=== PATIENT | female | born 1990 | race Caucasian/White ===

== ENCOUNTER 2016-08-10 11:41 | Day surgery (SDC) | payer BC ==
[~2016-08-10 11:41] MED LIST: ATARAX25 MG PO; CARAFATE1 G PO; CLEOCIN HCL300 M1 PO; COGENTIN1 MG/TA1 PO; DEPAKOTE ER250 MG PO; GLUCOPHAGE500 MG PO; HYDROCHLOROTH12.5 MG PO; LEVOXYL50 MC1 PO; LISINOPRIL10 MG PO; MEDROXYPROG150 MG/ML IM; MINIPRESS1 M1 PO; MOTRIN400 MG PO; PROTONIX40 MG PO; RISPERDAL3 MG PO; RISPERDAL37.5 MG/2 IM; VITAMIN D1000 UNIT PO
[2016-08-10] MEDS ORDERED: MINIPRESS1 M1 PO (11:51)
[2016-08-10] MEDS ORDERED: SEROQUEL200 M2 PO (11:51)
[2016-08-10] MEDS ORDERED: SYNTHROID50 MC1 PO (11:52)
[2016-08-10] MEDS ORDERED: VITAMIN D31000 UNI3 PO (11:52)
[2016-08-10] MEDS ORDERED: XYLIMELTS MM (11:53)
[2016-08-10] MEDS ORDERED: SONATA10 M2 PO (11:53)
[2016-08-10] MEDS ORDERED: LORAZEPAM2 MG/1 M2 IM (11:54)
[2016-08-10] MEDS ORDERED: XANAX1 M1 PO (11:54)
[2016-08-10] MEDS ORDERED: HYDROXYZINE HCL50 M1 PO (11:55)
[2016-08-10] MEDS ORDERED: ZYPREXA10 M2 IM (11:56)
[2016-08-10] MEDS ORDERED: OLANZAPINE SL (11:57)
[2016-08-10] MEDS ORDERED: ZOFRAN ODT4 MG SL (11:58)
[2016-08-10] MEDS ORDERED: ACETAMINOPHEN325 M2 PO (11:59)
[2016-08-10] MEDS ORDERED: BISACODYL5 M1 PO (12:00)
[2016-08-10] MEDS ORDERED: [UNRECOGNIZED DRUG - OTHER] PO (12:00)
[2016-08-10] MEDS ORDERED: EXCEDRIN MIGRA1 EAC3 PO (12:01)
[2016-08-10] MEDS ORDERED: CALCIUM500 M4 CH (12:01)
[2016-08-10] MEDS ORDERED: CEPACOL SORE T1 EAC2 MM (12:01)
[2016-08-10] MEDS ORDERED: LOPERAMIDE2 M2 PO (12:02)
[2016-08-10] MEDS ORDERED: MILK OF MAGNESIA PO (12:03)
[2016-08-10] MEDS ORDERED: NYSTOP60 GM EXT (12:04)
[2016-08-10] MEDS ORDERED: PROAIR HFA8.5 GM INH (12:05)
[2016-08-10] MEDS ORDERED: HALOPERIDOL5 MG/1 M1 IM (12:06)
[2016-08-10 12:50] LABS: BASO % 0.3 % (0-2); EOS % 0.3 % (0-7); EOSINOPHIL ABSOLUTE COUNT 0.1 tho/cmm (0.0-0.7); HCT-HEMATOCRIT 40.7 % (34.0-49.0); HGB-HEMOGLOBIN 14.4 gm/dl (12.0-15.5); IMMATURE GRANULOCYTES ABSOLUTE 0.04 tho/cmm (0-0.03); IMMATURE GRANULOCYTES PERCENT 0.3 % (0-0.3); LYMPH % 13.8 % (20-45); LYMPH ABSOLUTE COUNT 2.1 tho/cmm (0.8-4.5); MCH (MEAN CORPUSCULAR HGB) 30.1 pg (28.0-32.0); MCHC MEAN CORPUSCULAR HGB CONC 35.4 % (32.0-36.0); MEAN PLATELET VOLUME 8.6 cmc (9.4-12.4); MONO % 9.8 % (0-12); MONOCYTE ABSOLUTE COUNT 1.5 tho/cmm (0.0-1.2); NEUTROPHIL ABSOLUTE COUNT 11.6 tho/cmm (1.6-8.0); NEUTROPHIL-AUTOMATED 11.6 tho/cmm (1.6-8.0); NEUTROPHILS % 75.5 % (40-80); PLATELET COUNT 222 tho/cmm (150-450); RED BLOOD COUNT 4.79 mil/cmm (4.00-5.20); RED CELL DISTRIBUTION WIDTH 13.4 % (12.4-16.4); WHITE BLOOD COUNT 15.4 tho/cmm (4.0-10.0)
[2016-08-10 12:57] LABS: URINE APPEARANCE CLEAR; URINE BILIRUBIN NEGATIVE (NEG); URINE BLOOD NEGATIVE (NEG); URINE COLOR PALE YELLOW; URINE GLUCOSE (UA) NEGATIVE (NEG); URINE KETONE NEGATIVE (NEG); URINE LEUKOCYTE ESTERASE NEGATIVE (NEG); URINE NITRITE NEGATIVE (NEG); URINE PH 6.5 (5.0-8.0); URINE PROTEIN NEGATIVE (NEG)
[2016-08-10 13:04] LABS: ANION GAP 12 mmol/L (0-20); BLOOD UREA NITROGEN 8 mg/dl (6-24); CALCIUM 9.3 mg/dl (8.5-10.5); CARBON DIOXIDE-VENOUS 27 mmol/L (22-32); CHLORIDE 107 mmol/l (96-110); CREATININE 0.76 mg/dl (0.50-1.10); GLUCOSE 97 mg/dL (70-110); POTASSIUM 3.9 mmol/L (3.7-5.1); SODIUM 142 mmol/L (135-145); eGFR VALUE FOR BLACK >90 mL/Min
[2016-08-28] MEDS ORDERED: DOK250 M1 PO (16:27)
[2016-08-28] MEDS ORDERED: MILK OF MAGNESIA PO (16:43)
[2016-08-28] MEDS ORDERED: LORAZEPAM IM (16:46)
[2016-10-23] MEDS ORDERED: PROZAC20 M3 PO (21:52)
[2016-10-23] MEDS ORDERED: DEPO-PROVE150 MG/1 M IM (21:53)
[2016-10-23] MEDS ORDERED: MACROBID 100 M100 M1 PO (22:18)
== END 2016-08-10 18:35 ==
LOC: EDMED 11:41 → SRG 13:41 → SHSC 14:00
PROVIDERS: Emergency Medicine
PROC: 0JC80ZZ Extirpation of Matter from Abdomen Subcutaneous Tissue and Fascia, Open Approach (ICD-10-PCS; principal; 2016-08-10)
DX: L03.311 Cellulitis of abdominal wall (principal); S30.851A Superficial foreign body of abdominal wall, initial encounter; I10 Essential (primary) hypertension; E66.01 Morbid (severe) obesity due to excess calories; E11.9 Type 2 diabetes mellitus without complications; E03.9 Hypothyroidism, unspecified; F41.9 Anxiety disorder, unspecified; F32.9 Major depressive disorder, single episode, unspecified; F20.9 Schizophrenia, unspecified; K21.9 Gastro-esophageal reflux disease without esophagitis; F17.210 Nicotine dependence, cigarettes, uncomplicated; Z79.899 Other long term (current) drug therapy; Z88.1 Allergy status to other antibiotic agents; Z88.8 Allergy status to other drugs, medicaments and biological substances; Z91.040 Latex allergy status; Z91.048 Other nonmedicinal substance allergy status; Z90.49 Acquired absence of other specified parts of digestive tract; Z90.89 Acquired absence of other organs; Z98.890 Other specified postprocedural states
CPT/HCPCS: J2185; J3370; J7030

== ENCOUNTER 2016-08-13 21:49 | Inpatient (IN) | payer BC ==
[~2016-08-13 21:49] MED LIST changes: +ACETAMINOPHEN325 M2 PO; +BISACODYL5 M1 PO; +CALCIUM500 M4 CH; +CEPACOL SORE T1 EAC2 MM; +EXCEDRIN MIGRA1 EAC3 PO; +HALOPERIDOL5 MG/1 M1 IM; +HYDROXYZINE HCL50 M1 PO; +LOPERAMIDE2 M2 PO; +LORAZEPAM2 MG/1 M2 IM; +MILK OF MAGNESIA PO; +NYSTOP60 GM EXT; +OLANZAPINE SL; +PROAIR HFA8.5 GM INH; +SEROQUEL200 M2 PO; +SONATA10 M2 PO; +SYNTHROID50 MC1 PO; +VITAMIN D31000 UNI3 PO; +XANAX1 M1 PO; +XYLIMELTS MM; +ZOFRAN ODT4 MG SL; +ZYPREXA10 M2 IM; +[UNRECOGNIZED DRUG - OTHER] PO
[2016-08-13 22:34] LABS: BASO % 0.5 % (0-2); BASO ABSOLUTE COUNT 0.1 tho/cmm (0.0-0.2); EOS % 1.6 % (0-7); EOSINOPHIL ABSOLUTE COUNT 0.2 tho/cmm (0.0-0.7); HGB-HEMOGLOBIN 12.7 gm/dl (12.0-15.5); IMMATURE GRANULOCYTES ABSOLUTE 0.03 tho/cmm (0-0.03); IMMATURE GRANULOCYTES PERCENT 0.3 % (0-0.3); LYMPH % 22.6 % (20-45); LYMPH ABSOLUTE COUNT 2.5 tho/cmm (0.8-4.5); MCH (MEAN CORPUSCULAR HGB) 29.7 pg (28.0-32.0); MCHC MEAN CORPUSCULAR HGB CONC 34.3 % (32.0-36.0); MCV (MEAN CELL VOLUME) 86.7 fl (82.0-96.0); MEAN PLATELET VOLUME 8.4 cmc (9.4-12.4); MONO % 6.7 % (0-12); MONOCYTE ABSOLUTE COUNT 0.7 tho/cmm (0.0-1.2); NEUTROPHIL ABSOLUTE COUNT 7.5 tho/cmm (1.6-8.0); NEUTROPHIL-AUTOMATED 7.5 tho/cmm (1.6-8.0); NEUTROPHILS % 68.3 % (40-80); PLATELET COUNT 280 tho/cmm (150-450); RED BLOOD COUNT 4.27 mil/cmm (4.00-5.20); RED CELL DISTRIBUTION WIDTH 13.6 % (12.4-16.4); WHITE BLOOD COUNT 10.9 tho/cmm (4.0-10.0)
[2016-08-13 22:38] LABS: URINE APPEARANCE CLEAR; URINE BILIRUBIN NEGATIVE (NEG); URINE BLOOD NEGATIVE (NEG); URINE COLOR YELLOW; URINE GLUCOSE (UA) NEGATIVE (NEG); URINE KETONE NEGATIVE (NEG); URINE LEUKOCYTE ESTERASE NEGATIVE (NEG); URINE NITRITE NEGATIVE (NEG); URINE PROTEIN NEGATIVE (NEG)
[2016-08-13 22:49] LABS: ANION GAP 11 mmol/L (0-20); BLOOD UREA NITROGEN 11 mg/dl (6-24); CALCIUM 8.9 mg/dl (8.5-10.5); CARBON DIOXIDE-VENOUS 30 mmol/L (22-32); CHLORIDE 103 mmol/l (96-110); CREATININE 0.92 mg/dl (0.50-1.10); GLUCOSE 129 mg/dL (70-110); POTASSIUM 3.9 mmol/L (3.7-5.1); SODIUM 140 mmol/L (135-145); eGFR VALUE FOR BLACK >90 mL/Min
[2016-08-13 23:00] LABS: PROCALCITONIN <0.05 ng/ml (0.05-0.09)
[2016-08-13] MEDS ORDERED: BACTRIM DS TAB1 EAC2 PO (23:30)
[2016-08-13] MEDS ORDERED: NORCO 5-325 TA1 EACH PO (23:37)
[2016-08-14 06:55] LABS: BASO % 0.5 % (0-2); BASO ABSOLUTE COUNT 0.1 tho/cmm (0.0-0.2); EOS % 1.7 % (0-7); EOSINOPHIL ABSOLUTE COUNT 0.2 tho/cmm (0.0-0.7); HCT-HEMATOCRIT 34.5 % (34.0-49.0); HGB-HEMOGLOBIN 11.7 gm/dl (12.0-15.5); IMMATURE GRANULOCYTES ABSOLUTE 0.04 tho/cmm (0-0.03); IMMATURE GRANULOCYTES PERCENT 0.4 % (0-0.3); LYMPH % 27.9 % (20-45); LYMPH ABSOLUTE COUNT 2.6 tho/cmm (0.8-4.5); MCH (MEAN CORPUSCULAR HGB) 29.2 pg (28.0-32.0); MCHC MEAN CORPUSCULAR HGB CONC 33.9 % (32.0-36.0); MEAN PLATELET VOLUME 8.3 cmc (9.4-12.4); MONO % 8.8 % (0-12); MONOCYTE ABSOLUTE COUNT 0.8 tho/cmm (0.0-1.2); NEUTROPHIL ABSOLUTE COUNT 5.7 tho/cmm (1.6-8.0); NEUTROPHIL-AUTOMATED 5.7 tho/cmm (1.6-8.0); NEUTROPHILS % 60.7 % (40-80); PLATELET COUNT 244 tho/cmm (150-450); RED BLOOD COUNT 4.01 mil/cmm (4.00-5.20); RED CELL DISTRIBUTION WIDTH 13.5 % (12.4-16.4); WHITE BLOOD COUNT 9.3 tho/cmm (4.0-10.0)
[2016-08-14 07:13] LABS: ANION GAP 14 mmol/L (0-20); BLOOD UREA NITROGEN 8 mg/dl (6-24); CALCIUM 8.4 mg/dl (8.5-10.5); CARBON DIOXIDE-VENOUS 28 mmol/L (22-32); CHLORIDE 105 mmol/l (96-110); CREATININE 0.82 mg/dl (0.50-1.10); GLUCOSE 90 mg/dL (70-110); SODIUM 143 mmol/L (135-145); eGFR VALUE FOR BLACK >90 mL/Min
--- NOTE | 2016-08-14 15:39 | NUR ---
VIRTUAL CARE NOTE: CALL PLACE TO [facility] TO OBTAIN IMMUNIZATION HX, [facility] STAFF TO RETURN CALL TO WITH INFORMATION
--- NOTE | 2016-08-14 18:55 | NUR ---
VIRTUAL CARE NOTE: ASSESSMENT DEFERRED, PT. SLEEPING.
[2016-08-16 05:43] LABS: BASO % 0.5 % (0-2); BASO ABSOLUTE COUNT 0.1 tho/cmm (0.0-0.2); EOS % 3.3 % (0-7); EOSINOPHIL ABSOLUTE COUNT 0.3 tho/cmm (0.0-0.7); HCT-HEMATOCRIT 35.2 % (34.0-49.0); IMMATURE GRANULOCYTES PERCENT 1.1 % (0-0.3); LYMPH % 34.2 % (20-45); LYMPH ABSOLUTE COUNT 3.2 tho/cmm (0.8-4.5); MCH (MEAN CORPUSCULAR HGB) 29.1 pg (28.0-32.0); MCHC MEAN CORPUSCULAR HGB CONC 34.1 % (32.0-36.0); MCV (MEAN CELL VOLUME) 85.4 fl (82.0-96.0); MEAN PLATELET VOLUME 8.3 cmc (9.4-12.4); MONO % 5.3 % (0-12); MONOCYTE ABSOLUTE COUNT 0.5 tho/cmm (0.0-1.2); NEUTROPHIL ABSOLUTE COUNT 5.2 tho/cmm (1.6-8.0); NEUTROPHIL-AUTOMATED 5.2 tho/cmm (1.6-8.0); NEUTROPHILS % 55.6 % (40-80); PLATELET COUNT 289 tho/cmm (150-450); RED BLOOD COUNT 4.12 mil/cmm (4.00-5.20); RED CELL DISTRIBUTION WIDTH 13.3 % (12.4-16.4); WHITE BLOOD COUNT 9.4 tho/cmm (4.0-10.0)
--- NOTE | 2016-08-16 06:30 | NUR ---
I WENT IN TO GIVE PT HER 0600 MEDS AND HER [facility] CAREGIVER WAS ASKING ME QUESTIONS OF THE PTS CONDITION. SHE ASKED ME IF THE PT HAD MRSA. I TOLD HER THAT I COULD NOT GIVE HER THAT INFORMATION. I ALSO TOLD HER IF THERE WERE PRECAUTIONS ON THE DOOR THEN SHE MAY WANT TO USE THEM. SHE WAS WATCHING ME I WAS PASSING THE MED & HANG HER IV MED. SHE ASKED AGAIN IF SHE HAD ANYTHING AND I SAID SHE WOULD NEED TO TALK TO HER COMPANY OR SOMEONE ELSE BECAUSE WE COULD NOT DISCLOSE THAT INFORMATION. I BAGGED UP THE GARBAGE AND WENT TO LEAVE, SHE FOLLOWED ME OUT THE DOOR AND ASKED WHAT MED I GAVE HER. AGAIN I SAID HER MEDS THAT WERE DUE AND LEFT IT AT THAT. MY AIDE TAMIE WENT IN TO FILL THE PTS ICE WATER & THE [facility] WORKER HAD HER PHONE OUT AND WAS TAKING NUMEROUS PICS OF THE ROOM AND THE OUTSIDE.
[2016-08-17 06:54] LABS: CREATININE 0.78 mg/dl (0.50-1.10); eGFR VALUE FOR BLACK >90 mL/Min
[2016-08-17] MEDS ORDERED: KEFLEX500 M4 PO (13:06)
[2016-08-28] MEDS ORDERED: DOK250 M1 PO (16:27)
[2016-08-28] MEDS ORDERED: MILK OF MAGNESIA PO (16:43)
[2016-08-28] MEDS ORDERED: LORAZEPAM IM (16:46)
[2016-10-23] MEDS ORDERED: PROZAC20 M3 PO (21:52)
[2016-10-23] MEDS ORDERED: DEPO-PROVE150 MG/1 M IM (21:53)
[2016-10-23] MEDS ORDERED: MACROBID 100 M100 M1 PO (22:18)
== END 2016-08-17 15:30 | disposition other institution (70) | DRG 872 ==
LOC: EDMED 21:49 → EMR2 08-14 00:22 → 5WD 08-14 01:06
PROVIDERS: Emergency Medicine; Internal Medicine Infectious Disease; Physician Assistant; Radiology Radiation Oncology; ADMIT Hospitalist
PROC: 05HF33Z Insertion of Infusion Device into Left Cephalic Vein, Percutaneous Approach (ICD-10-PCS; principal; 2016-08-16)
DX: A41.9 Sepsis, unspecified organism (principal); Z68.43 Body mass index [BMI] 50.0-59.9, adult; I10 Essential (primary) hypertension; L03.311 Cellulitis of abdominal wall; E66.01 Morbid (severe) obesity due to excess calories; K59.00 Constipation, unspecified; B95.61 Methicillin susceptible Staphylococcus aureus infection as the cause of diseases classified elsewhere; B96.20 Unspecified Escherichia coli [E. coli] as the cause of diseases classified elsewhere; X78.8XXA Intentional self-harm by other sharp object, initial encounter; E03.9 Hypothyroidism, unspecified; F99 Mental disorder, not otherwise specified; Z88.0 Allergy status to penicillin; Z91.040 Latex allergy status
CPT/HCPCS: C1751; J1170; J2060; J2185; J2270; J2405; J3370; J7030; J7050; Q9967